=== PATIENT | female | born 1940 | race Two or more races ===

== ENCOUNTER 2016-12-24 00:53 | Emergency (ER) | payer OTHER ==
[2016-02-24 14:30] VITALS: BP 114/43
[~2016-12-24 00:53] MED LIST: ALEN70TA3 PO; AMLO1TAB6 PO; CALC1TAB75 PO; CHOL10002 PO; LOSA100T6 PO; OMEG1CAP29 PO
[2016-12-24] MEDS ORDERED: CALCIUM CHLORIDE 1,000 MG/10 ML DISP.SYRIN IV ONE (03:00)
[2016-12-24] MEDS ORDERED: SODIUM BICARB ADULT 8.4% 50 MEQ/50 ML DISP.SYRIN. IV ONE (03:00)
[2016-12-24] MEDS ORDERED: EPINEPHrine SYRINGE 1 MG/10 ML SYRINGE IV ONE ×3 (03:00)
--- NOTE | 2016-12-24 03:18 | PHYS DOC ---
Adult General Chief Complaint Chief Complaint: CPR/FULL ARREST HPI HPI Patient is a 76 year old female with history significant for coronary artery disease presents today by EMS of the CODE BLUE. According to the son and the the patient did not feel well throughout the course of the evening and then prior to arrival the reports that he felt her arm felt cool to him so he called EMS. Upon EMS arrival the patient apparently was initially tachypneic tachycardic and appeared to be in distress. Seems like within minutes the patient became asystolic and a CODE BLUE was initiated. Per EMS ACLS was initiated with CPR. They were unable to obtain IV access. They're unable to intubate secondary to frothy red secretions. Patient arrived to the ED here at [facility] asystolic pulseless with [id number] and a CPR machine in place. Patient was intubated with a 40 Mac utilizing a 7.5 endotracheal tube. Cords were visualized and breath sounds were equal bilaterally and end-tidal CO2 confirmed placement. She was placed at 22 cm lips. IV access was obtained and the ER by the nurses. ACLS was initiated. Patient was given epinephrine, sodium bicarbonate, calcium chloride without any significant change in the rhythm. Patient did have episodes of PDA and asystole. Patient never recovered never got a pulse. After several rounds of ACLS the patient was pronounced. The family was in the ER and the case was discussed with him. 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 Case was discussed with her primary care physician Dr. Albarran and she has agreed to sign the certificate. Critical care time of 45 minutes were utilizing a treatment and management of this patient's CODE BLUE status and discussion with family. This was exclusive of any procedures that were performed. Review of Systems Review of Systems Unable to obtain review of systems secondary to the patient's critical condition Able to obtain a full physical exam secondary to the patient's critical condition Current Medications Current Medications Current Medications Medications (Trade) Dose Ordered Sig/Ann Start Time Stop Time Status Last Admin Dose Admin Calcium Chloride 1,000 mg 1X ONCE 12/24/16 03:00 12/24/16 03:03 DC 12/24/16 00:47 1,000 MG Epinephrine HCl (Epinephrine Syringe) 1 mg 1X ONCE 12/24/16 03:00 12/24/16 03:03 DC 12/24/16 00:43 1 MG Sodium Bicarbonate 50 meq 1X ONCE 12/24/16 03:00 12/24/16 03:03 DC 12/24/16 00:47 50 MEQ Allergies Allergies Allergies Coded Allergies Type Severity Reaction Last Updated Verified No Known Drug Allergies 02/24/16 No Physical Exam Physical Exam Constitutional: Well developed, HENT: Normocephalic, atraumatic Eyes: Pupils fixed and dilated at 4 mm bilaterally. Cardiovascular: Asystolic pulseless Lungs & Thorax: Equal breath sounds bilaterally with bag valve mask. No spontaneous respirations. Abdomen: Nondistended Skin: Warm, dry Neurologic: GCS of 3 EKG EKG [] Radiology/Procedures Radiology/Procedures [] Impressions: Status post CODE BLUE. Patient was pronounced with a terminal with him of PeA after multiple rounds of ACLS. Case was discussed with the patient's primary care physician. Course & Med Decision Making Course & Med Decision Making Pertinent Labs and Imaging studies reviewed. (See chart for details) [] Dragon Disclaimer Dragon Disclaimer This electronic medical record was generated, in whole or in part, using a voice recognition dictation system. Departure Departure Impression: Primary Impression: Cardiac arrest Additional Impression: Myocardial infarction Disposition: 20 Condition: Problem Qualifiers Additional Impression: Myocardial infarction Involved coronary artery: unspecified coronary artery XENA RODRIGUEZ MD December 24, 2016 03:18
[2016-12-24] MEDS ORDERED: EPINEPHrine SYRINGE 1 MG/10 ML SYRINGE ONE (12:00)
[2016-12-24] MEDS ORDERED: SODIUM BICARB ADULT 8.4% 50 MEQ/50 ML DISP.SYRIN. ONE (12:00)
[2016-12-24] MEDS ORDERED: EPINEPHrine VIAL 30 MG/30 ML VIAL ONE (12:00)
[2016-12-24] MEDS ORDERED: CALCIUM GLUCONATE 1,000 MG/10 ML VIAL. ONE (12:00)
[2016-12-25 06:56] LABS: POTASSIUM ISTAT 4.4 mmol/L (3.5-5.0)
== END 2016-12-24 03:03 | disposition expired ==
LOC: ER 00:53
DX: I46.9 Cardiac arrest, cause unspecified (principal); I21.3 ST elevation (STEMI) myocardial infarction of unspecified site
CPT/HCPCS: 80047; 84484; 92950; 96374; 96375; 99291; J0171; J0610; J3490